=== PATIENT | female | born 1950 | race Caucasian/White ===

== ENCOUNTER → 2016-10-06 | Outpatient (CLI) | payer OTHER ==
[~2016-10-06] MED LIST: ALPR2TAB2 PO; ATEN-60 PO; ATOR10TA52 PO; CLOP75TA41 PO; DIPH2.5T73 PO; ESCI20TA51 PO; ETAN25IN3 SC; METH25IN14 SUBCUT; PANT40TA2 PO; TRAM50TA2 PO
[2016-10-06 13:01] LABS: Urine RBC None Seen /hpf (0 - 4)
[2016-10-06 13:43] LABS: Basophils # (auto) 0.1 uL; Basophils % (auto) 0.7 % (0.0-2.0); Eosinophils # (auto) 0.6 uL; Eosinophils % (auto) 7.2 % (0.0-7.0); Hematocrit 39.1 % (36.0-46.0); Hemoglobin 12.4 g/dL (12.2-16.2); Lymphocytes # (auto) 2.1 uL; Lymphocytes % (auto) 27.4 % (10.0-50.0); Mean Corpuscular Hemoglobin 28.4 pg (28.0-32.0); Mean Corpuscular Hgb Conc. 31.8 g/dL (32.0-36.0); Mean Corpuscular Volume 89.5 fL (80.0-100.0); Mean Platelet Volume 8.6 fL (7.4-10.4); Monocytes # (auto) 0.5 uL; Monocytes % (auto) 6.3 % (0.0-12.0); Neutrophils # (auto) 4.6 uL; Neutrophils % (auto) 58.4 % (37.0-80.0); Platelet Count (auto) 320 10^3/uL (140-450); White Blood Cell 7.8 10^3/uL (4.4-10.8)
[2016-10-06 13:45] LABS: Urine Bilirubin Negative (Negative); Urine Blood Negative /uL (Negative); Urine Color Yellow (Yellow); Urine Glucose Normal (Normal); Urine Ketone Negative (Negative); Urine Nitrite Negative (Negative); Urine Squamous Epithelial Cell FEW /hpf (<5); Urine Urobilinogen Normal (Negative)
[2016-10-06 13:57] LABS: Albumin 3.9 g/dL (3.4-5.0); BUN/Creatinine Ratio 16.3; Bilirubin, Total 0.7 mg/dL (0.2-1.0); Calcium 9.2 mg/dL (8.5-10.1); Total Protein 7.8 g/dL (6.4-8.2)
== END | disposition home or self-care (01) ==
LOC: LAB 11:50
DX: M06.9 Rheumatoid arthritis, unspecified (principal); M25.50 Pain in unspecified joint; D64.9 Anemia, unspecified; I10 Essential (primary) hypertension; M33.20 Polymyositis, organ involvement unspecified; N18.3 Chronic kidney disease, stage 3 (moderate); Z00.00 Encounter for general adult medical examination without abnormal findings
CPT/HCPCS: 36415; 80053; 80061; 81001; 82550; 83615; 84443; 85025; 85652; 86141

== ENCOUNTER → 2017-01-13 | Outpatient (CLI) | payer OTHER ==
[2017-01-13 15:40] LABS: Albumin 3.7 g/dL (3.4-5.0); BUN/Creatinine Ratio 17.4; Basophils # (auto) 0 uL; Basophils % (auto) 0.6 % (0.0-2.0); Eosinophils # (auto) 0.5 uL; Eosinophils % (auto) 7.4 % (0.0-7.0); Hematocrit 37.7 % (36.0-46.0); Hemoglobin 12.9 g/dL (12.2-16.2); Lymphocytes # (auto) 2.1 uL; Lymphocytes % (auto) 28.5 % (10.0-50.0); Mean Corpuscular Hemoglobin 29.8 pg (28.0-32.0); Mean Corpuscular Hgb Conc. 34.3 g/dL (32.0-36.0); Mean Corpuscular Volume 87.1 fL (80.0-100.0); Mean Platelet Volume 8.6 fL (7.4-10.4); Monocytes # (auto) 0.4 uL; Monocytes % (auto) 5.4 % (0.0-12.0); Neutrophils # (auto) 4.2 uL; Neutrophils % (auto) 58.1 % (37.0-80.0); Platelet Count (auto) 261 10^3/uL (140-450); Potassium 3.9 mmol/L (3.5-5.1); Red Cell Distribution Width 15.3 % (11.6-16.0); White Blood Cell 7.3 10^3/uL (4.4-10.8)
[2017-01-13 15:48] LABS: Bilirubin, Total 0.9 mg/dL (0.2-1.0); Total Protein 7.8 g/dL (6.4-8.2)
== END | disposition home or self-care (01) ==
LOC: LAB 14:40
PROVIDERS: ATTEND Family Medicine
DX: J44.9 Chronic obstructive pulmonary disease, unspecified (principal); E78.5 Hyperlipidemia, unspecified; M06.9 Rheumatoid arthritis, unspecified; N18.3 Chronic kidney disease, stage 3 (moderate); I10 Essential (primary) hypertension
CPT/HCPCS: 36415; 80053; 80061; 82306; 82607; 83036; 84443; 85025; 85652; 86141

== ENCOUNTER → 2017-05-24 | Outpatient (CLI) | payer OTHER ==
[2017-05-24 10:52] LABS: Basophils # (auto) 0.1 uL; Basophils % (auto) 0.9 % (0.0-2.0); Eosinophils # (auto) 0.4 uL; Eosinophils % (auto) 5.4 % (0.0-7.0); Hematocrit 36.9 % (36.0-46.0); Hemoglobin 12.5 g/dL (12.2-16.2); Lymphocytes # (auto) 2.5 uL; Lymphocytes % (auto) 31.7 % (10.0-50.0); Mean Corpuscular Hemoglobin 29.5 pg (28.0-32.0); Mean Corpuscular Hgb Conc. 33.8 g/dL (32.0-36.0); Mean Corpuscular Volume 87.4 fL (80.0-100.0); Mean Platelet Volume 8.4 fL (6.9-10.8); Monocytes # (auto) 0.5 uL; Monocytes % (auto) 7.1 % (0.0-12.0); Neutrophils # (auto) 4.3 uL; Neutrophils % (auto) 54.9 % (37.0-80.0); Nucleated Red Blood Cells % 0.1 %; Platelet Count (auto) 273 10^3/uL (140-450); Red Cell Distribution Width 15.2 % (11.8-14.3); White Blood Cell 7.8 10^3/uL (4.4-10.8)
[2017-05-24 11:43] LABS: Albumin 3.5 g/dL (3.4-5.0); BUN/Creatinine Ratio 23.6; Bilirubin, Total 0.6 mg/dL (0.2-1.0); Calcium 9.3 mg/dL (8.5-10.1); Potassium 4.1 mmol/L (3.5-5.1); Total Protein 7.9 g/dL (6.4-8.2)
== END | disposition home or self-care (01) ==
LOC: LAB 09:51
DX: I10 Essential (primary) hypertension (principal); M25.50 Pain in unspecified joint; M06.9 Rheumatoid arthritis, unspecified; D64.9 Anemia, unspecified; Z79.899 Other long term (current) drug therapy
CPT/HCPCS: 36415; 80053; 85025; 85652; 86141

== ENCOUNTER → 2018-01-05 | Outpatient (CLI) | payer OTHER ==
[2018-01-05 15:34] LABS: Albumin 3.8 g/dL (3.4-5.0); BUN/Creatinine Ratio 17.1; Bilirubin, Total 0.6 mg/dL (0.2-1.0); Potassium 4.2 mmol/L (3.5-5.1); Total Protein 7.8 g/dL (6.4-8.2)
[2018-01-05 17:12] LABS: Basophils # (auto) 0.1 uL; Basophils % (auto) 0.9 % (0.0-2.0); Eosinophils # (auto) 0.4 uL; Eosinophils % (auto) 5.7 % (0.0-7.0); Hemoglobin 13.1 g/dL (12.2-16.2); Lymphocytes # (auto) 1.7 uL; Lymphocytes % (auto) 22.9 % (10.0-50.0); Mean Corpuscular Hemoglobin 30.6 pg (28.0-32.0); Mean Corpuscular Hgb Conc. 35.4 g/dL (32.0-36.0); Mean Corpuscular Volume 86.4 fL (80.0-100.0); Monocytes # (auto) 0.5 uL; Monocytes % (auto) 6.2 % (0.0-12.0); Neutrophils # (auto) 4.7 uL; Neutrophils % (auto) 64.3 % (37.0-80.0); Nucleated Red Blood Cells % 0.1 %; Platelet Count (auto) 245 10^3/uL (140-450); Red Blood Cells 4.28 10^6/uL (4.0-5.20); Red Cell Distribution Width 14.4 % (11.8-14.3); White Blood Cell 7.4 10^3/uL (4.4-10.8)
== END | disposition home or self-care (01) ==
LOC: LAB 14:19
PROVIDERS: ATTEND Family Medicine
DX: M06.9 Rheumatoid arthritis, unspecified (principal); K21.9 Gastro-esophageal reflux disease without esophagitis; F33.9 Major depressive disorder, recurrent, unspecified; E78.5 Hyperlipidemia, unspecified; I12.9 Hypertensive chronic kidney disease with stage 1 through stage 4 chronic kidney disease, or unspecified chronic kidney disease; N18.3 Chronic kidney disease, stage 3 (moderate); E03.9 Hypothyroidism, unspecified; J44.9 Chronic obstructive pulmonary disease, unspecified; Z79.899 Other long term (current) drug therapy
CPT/HCPCS: 36415; 80053; 80061; 82306; 82607; 84443; 85025; 85652

== ENCOUNTER → 2018-04-27 | Outpatient (CLI) | payer MEDICARE, OTHER | END | disposition home or self-care (01) | LOC: XYW 11:10 | PROVIDERS: ATTEND Family Medicine | DX: I51.7 Cardiomegaly (principal); I10 Essential (primary) hypertension; E78.5 Hyperlipidemia, unspecified; K21.9 Gastro-esophageal reflux disease without esophagitis | CPT/HCPCS: 93306 ==

== ENCOUNTER → 2018-06-16 | Outpatient (CLI) | payer OTHER ==
[~2018-06-16] VITALS: Ht 162.6 cm; Wt 64.9 kg
[~2018-06-16] MED LIST changes: +ADENOSINE 54 MG in GIVE UN-DILUTED 0 ML IV STA; +ALBUTEROL SULF 2.5 MG/0.5ML(0.5%) NEB SOLN NEB ONE; +ALBUTEROL SULF 2.5 MG/0.5ML(0.5%) NEB SOLN ONE; +IPRATROPIUM BROM 0.5 MG/2.5ML INH SOL NEB ONE; +IPRATROPIUM BROM 0.5 MG/2.5ML INH SOL ONE
[2018-06-16 11:44] VITALS: BP 141/85
== END | disposition home or self-care (01) ==
LOC: XY 06-15 10:48
PROVIDERS: ATTEND Internal Medicine Cardiovascular Disease
DX: R07.89 Other chest pain (principal)
CPT/HCPCS: 78452; 93017; A9500; J0153; J7611; J7644

== ENCOUNTER → 2018-06-23 | Outpatient (CLI) | payer OTHER ==
[~2018-06-23] MED LIST changes: -ADENOSINE 54 MG in GIVE UN-DILUTED 0 ML IV STA; -ALBUTEROL SULF 2.5 MG/0.5ML(0.5%) NEB SOLN NEB ONE; -ALBUTEROL SULF 2.5 MG/0.5ML(0.5%) NEB SOLN ONE; -IPRATROPIUM BROM 0.5 MG/2.5ML INH SOL NEB ONE; -IPRATROPIUM BROM 0.5 MG/2.5ML INH SOL ONE
== END | disposition home or self-care (01) ==
LOC: XYW 10:52
PROVIDERS: ATTEND Internal Medicine Cardiovascular Disease
DX: R07.89 Other chest pain (principal)
CPT/HCPCS: 93306

== ENCOUNTER → 2018-07-19 | Outpatient (CLI) | payer OTHER ==
[2018-07-19 16:16] LABS: Albumin 3.9 g/dL (3.4-5.0); BUN/Creatinine Ratio 20.5; CRP High Sensitivity 0.48 mg/dL (< 0.3); Calcium 8.9 mg/dL (8.5-10.1); Potassium 4.1 mmol/L (3.5-5.1)
[2018-07-19 16:19] LABS: Bilirubin, Total 0.6 mg/dL (0.2-1.0); Total Protein 7.7 g/dL (6.4-8.2)
[2018-07-19 16:28] LABS: Basophils # (auto) 0.1 uL; Basophils % (auto) 1.2 % (0.0-2.0); Eosinophils # (auto) 0.4 uL; Eosinophils % (auto) 6.8 % (0.0-7.0); Hematocrit 36.1 % (36.0-46.0); Hemoglobin 12.8 g/dL (12.2-16.2); Lymphocytes # (auto) 2.1 uL; Lymphocytes % (auto) 33.4 % (10.0-50.0); Mean Corpuscular Hemoglobin 30.8 pg (28.0-32.0); Mean Corpuscular Hgb Conc. 35.4 g/dL (32.0-36.0); Monocytes # (auto) 0.5 uL; Monocytes % (auto) 7.5 % (0.0-12.0); Neutrophils # (auto) 3.2 uL; Neutrophils % (auto) 51.1 % (37.0-80.0); Nucleated Red Blood Cells % 0.1 %; Platelet Count (auto) 249 10^3/uL (140-450); Red Blood Cells 4.15 10^6/uL (4.0-5.20); Red Cell Distribution Width 15.2 % (11.8-14.3); White Blood Cell 6.3 10^3/uL (4.4-10.8)
== END | disposition home or self-care (01) ==
LOC: LAB 14:43
PROVIDERS: ATTEND Internal Medicine
DX: Z11.59 Encounter for screening for other viral diseases (principal); D64.9 Anemia, unspecified; M06.9 Rheumatoid arthritis, unspecified; I10 Essential (primary) hypertension; A15.0 Tuberculosis of lung; Z79.899 Other long term (current) drug therapy; Z72.89 Other problems related to lifestyle
CPT/HCPCS: 36415; 80053; 82306; 85025; 85652; 86141; 86200; 86431; 86704; 86706; 86708; 86803; 87340

== ENCOUNTER → 2018-10-18 | Outpatient (CLI) | payer OTHER, MEDICARE ==
[2018-10-18 16:47] LABS: Basophils # (auto) 0.1 uL; Basophils % (auto) 1.1 % (0.0-2.0); Eosinophils # (auto) 0.3 uL; Eosinophils % (auto) 4.9 % (0.0-7.0); Hematocrit 39.4 % (36.0-46.0); Hemoglobin 13.5 g/dL (12.2-16.2); Lymphocytes # (auto) 1.9 uL; Lymphocytes % (auto) 26.9 % (10.0-50.0); Mean Corpuscular Hemoglobin 29.9 pg (28.0-32.0); Mean Corpuscular Hgb Conc. 34.4 g/dL (32.0-36.0); Mean Corpuscular Volume 86.9 fL (80.0-100.0); Monocytes # (auto) 0.5 uL; Monocytes % (auto) 6.7 % (0.0-12.0); Neutrophils # (auto) 4.2 uL; Neutrophils % (auto) 60.4 % (37.0-80.0); Nucleated Red Blood Cells % 0.2 %; Platelet Count (auto) 243 10^3/uL (140-450); Red Blood Cells 4.53 10^6/uL (4.0-5.20); Red Cell Distribution Width 14.4 % (11.8-14.3); White Blood Cell 6.9 10^3/uL (4.4-10.8)
[2018-10-18 17:36] LABS: Albumin 3.8 g/dL (3.4-5.0); BUN/Creatinine Ratio 14.6; Calcium 8.6 mg/dL (8.5-10.1); Potassium 3.8 mmol/L (3.5-5.1)
[2018-10-18 17:42] LABS: Bilirubin, Total 0.9 mg/dL (0.2-1.0); Total Protein 7.4 g/dL (6.4-8.2)
[2018-10-18 17:46] LABS: Folate (Folic Acid) > 24.00 ng/mL (5.38-24)
== END | disposition home or self-care (01) ==
LOC: LAB 16:06
PROVIDERS: ATTEND Student in an Organized Health Care Education/Training Program
DX: M32.9 Systemic lupus erythematosus, unspecified (principal); M32.10 Systemic lupus erythematosus, organ or system involvement unspecified; M35.00 Sjogren syndrome, unspecified; E53.8 Deficiency of other specified B group vitamins; E03.9 Hypothyroidism, unspecified; I10 Essential (primary) hypertension; D64.9 Anemia, unspecified; M06.9 Rheumatoid arthritis, unspecified; R76.8 Other specified abnormal immunological findings in serum; E78.5 Hyperlipidemia, unspecified
CPT/HCPCS: 36415; 80053; 80061; 82607; 82746; 84443; 85025; 86160; 86376; 86800

== ENCOUNTER → 2019-03-15 | Outpatient (CLI) | payer OTHER, MEDICARE ==
[2019-03-15 14:38] LABS: Basophils # (auto) 0.1 uL; Basophils % (auto) 1.1 % (0.0-2.0); Eosinophils # (auto) 0.4 uL; Eosinophils % (auto) 4.9 % (0.0-7.0); Hematocrit 36.8 % (36.0-46.0); Hemoglobin 12.6 g/dL (12.2-16.2); Lymphocytes # (auto) 1.9 uL; Lymphocytes % (auto) 23.8 % (10.0-50.0); Mean Corpuscular Hemoglobin 30.1 pg (28.0-32.0); Mean Corpuscular Hgb Conc. 34.2 g/dL (32.0-36.0); Mean Corpuscular Volume 87.9 fL (80.0-100.0); Monocytes # (auto) 0.6 uL; Monocytes % (auto) 7.4 % (0.0-12.0); Neutrophils # (auto) 5.1 uL; Neutrophils % (auto) 62.8 % (37.0-80.0); Platelet Count (auto) 216 10^3/uL (140-450); Red Blood Cells 4.18 10^6/uL (4.0-5.20); Red Cell Distribution Width 14.9 % (11.8-14.3); White Blood Cell 8.1 10^3/uL (4.4-10.8)
[2019-03-15 15:51] LABS: Albumin 3.5 g/dL (3.4-5.0); CRP High Sensitivity 0.4 mg/dL (< 0.3); Calcium 8.4 mg/dL (8.5-10.1); Potassium 4.3 mmol/L (3.5-5.1)
[2019-03-15 15:54] LABS: Bilirubin, Total 0.4 mg/dL (0.2-1.0); Total Protein 7.4 g/dL (6.4-8.2)
[2019-03-15 15:58] LABS: BUN/Creatinine Ratio 15.9
== END | disposition home or self-care (01) ==
LOC: LAB 14:20
PROVIDERS: ATTEND Internal Medicine Rheumatology
DX: M06.9 Rheumatoid arthritis, unspecified (principal)
CPT/HCPCS: 36415; 80053; 85025; 85652; 86141

== ENCOUNTER → 2019-06-30 | Outpatient (CLI) | payer OTHER, MEDICARE ==
[2019-06-30 15:53] LABS: Basophils # (auto) 0.1 uL; Eosinophils # (auto) 0.4 uL; Eosinophils % (auto) 4.3 % (0.0-7.0); Hematocrit 40.9 % (36.0-46.0); Hemoglobin 13.9 g/dL (12.2-16.2); Lymphocytes # (auto) 2.5 uL; Lymphocytes % (auto) 29.2 % (10.0-50.0); Mean Corpuscular Hemoglobin 29.3 pg (28.0-32.0); Mean Corpuscular Hgb Conc. 34.1 g/dL (32.0-36.0); Mean Corpuscular Volume 85.9 fL (80.0-100.0); Monocytes # (auto) 0.6 uL; Monocytes % (auto) 6.7 % (0.0-12.0); Neutrophils % (auto) 58.8 % (37.0-80.0); Platelet Count (auto) 289 10^3/uL (140-450); Red Blood Cells 4.76 10^6/uL (4.0-5.20); Red Cell Distribution Width 14.2 % (11.8-14.3); White Blood Cell 8.5 10^3/uL (4.4-10.8)
[2019-06-30 16:16] LABS: % Iron Saturation 21.5 % (15-50)
[2019-06-30 16:24] LABS: Folate (Folic Acid) 20.23 ng/mL (5.38-24)
== END | disposition home or self-care (01) ==
LOC: LAB 15:24
PROVIDERS: ATTEND Internal Medicine
DX: E11.9 Type 2 diabetes mellitus without complications (principal); Z88.1 Allergy status to other antibiotic agents
CPT/HCPCS: 36415; 82746; 83036; 83540; 83550; 85025

== ENCOUNTER 2019-09-23 07:20 | Inpatient (IN) | payer MEDICARE, OTHER ==
[~2019-09-23] VITALS: Ht 165.1 cm; Wt 69.0 kg
[2019-09-23] MEDS ORDERED: HYDROmorphone HCL 2 MG/ML VL IV ONE (08:00)
[2019-09-23] MEDS ORDERED: ONDANSETRON HCL 4 MG/2 ML VIAL IV ONE (08:00)
[2019-09-23 08:10] LABS: Basophils # (auto) 0.1 uL; Basophils % (auto) 1.1 % (0.0-2.0); Eosinophils # (auto) 0.6 uL; Eosinophils % (auto) 7.3 % (0.0-7.0); Hematocrit 36.3 % (36.0-46.0); Hemoglobin 12.4 g/dL (12.2-16.2); Lymphocytes % (auto) 24.4 % (10.0-50.0); Mean Corpuscular Hemoglobin 29.3 pg (28.0-32.0); Mean Corpuscular Hgb Conc. 34.3 g/dL (32.0-36.0); Mean Corpuscular Volume 85.6 fL (80.0-100.0); Monocytes # (auto) 0.6 uL; Monocytes % (auto) 7.2 % (0.0-12.0); Neutrophils # (auto) 4.8 uL; Platelet Count (auto) 362 10^3/uL (140-450); Red Blood Cells 4.24 10^6/uL (4.0-5.20); Red Cell Distribution Width 14.2 % (11.8-14.3)
[2019-09-23 08:27] LABS: INR 1.14 (0.9-1.15); Partial Thromboplastin Time 29.9 sec (23.64-32.05)
[2019-09-23 08:29] LABS: Alanine Aminotransferase 14 U/L (13-56); Anion Gap 10 (5-15); Aspartate Aminotransferase 13 U/L (15-37); BUN/Creatinine Ratio 18.8; Blood Urea Nitrogen 15 mg/dL (7-18); Calcium 7.8 mg/dL (8.5-10.1); Carbon Dioxide 21 mmol/L (21-32); Chloride 108 mmol/L (98-107); GFR African American 91 mL/min; GFR Non-African American 76 mL/min; Glucose 145 mg/dL (74-106); Potassium 3.7 mmol/L (3.5-5.1); Sodium 139 mmol/L (136-145)
[2019-09-23 08:32] LABS: Alkaline Phosphatase 81 U/L (45-117); Bilirubin, Total 0.5 mg/dL (0.2-1.0); Total Protein 6.7 g/dL (6.4-8.2)
[2019-09-23] MEDS ORDERED: MORPHINE SULF INJ 2 MG/ML SYRINGE 1ML IV PRN ×2 (12:30)
[2019-09-23] MEDS ORDERED: NITROGLYCERIN 0.4 MG SL TAB SL PRN (12:30)
[2019-09-23] MEDS ORDERED: HYDROcodone-ACET 5/325MG TAB PO PRN (12:30)
[2019-09-23] MEDS ORDERED: ACETAMINOPHEN 500 MG TAB PO PRN (12:30)
[2019-09-23 13:10] LABS: CRP High Sensitivity 0.7 mg/dL (< 0.3)
[2019-09-23] MEDS: SODIUM CHLORIDE 0.9% 1,000 ML IV ONE ×2 (13:12→17:10)
[2019-09-23] MEDS ORDERED: FAMOTIDINE 20 MG TAB PO SCH (13:15)
[2019-09-23] MEDS: ONDANSETRON HCL 4 MG/2 ML VIAL IV PRN ×2 (14:26→21:06)
[2019-09-23] MEDS ORDERED: ATENOLOL 25 MG TAB PO ONE (14:45)
[2019-09-23 15:41] VITALS: BP 150/94
--- NOTE | 2019-09-23 19:45 | NUR ---
Opening Shift Note Assumed care of patient, AOX4. No S/S of distress/SOB. Fall and safety precautions in place. Call light within reach and able to use. Instructed on POC and to call for assist PRN, will continue to monitor for changes Q1hr and PRN.
[2019-09-23] MEDS: PANTOPRAZOLE 40 MG TAB PO SCH (21:05)
[2019-09-23] MEDS: ATORVASTATIN 20 MG TAB PO SCH (21:05)
[2019-09-23] MEDS: ATENOLOL 25 MG TAB PO SCH (21:05)
[2019-09-23 21:48] VITALS: BP 160/86
[2019-09-23] MEDS ORDERED: ATENOLOL 25 MG TAB PO SCH (22:00)
[2019-09-23] MEDS: hydrALAZINE HCL 20 MG/ML VL IV PRN (22:51)
[2019-09-24] VITALS (7 sets, daily range): BP systolic 105–162; BP diastolic 68–90
[2019-09-24] MEDS: ONDANSETRON HCL 4 MG/2 ML VIAL IV PRN (02:49)
--- NOTE | 2019-09-24 05:05 | NUR ---
HIGH BP SEE EMAR
[2019-09-24] MEDS: hydrALAZINE HCL 20 MG/ML VL IV PRN ×2 (05:06→23:55)
[2019-09-24 05:27] LABS: Basophils # (auto) 0 uL; Basophils % (auto) 0.2 % (0.0-2.0); Eosinophils # (auto) 0 uL; Eosinophils % (auto) 0.2 % (0.0-7.0); Hematocrit 27.6 % (36.0-46.0); Hemoglobin 9.3 g/dL (12.2-16.2); Lymphocytes # (auto) 0.9 uL; Lymphocytes % (auto) 7.9 % (10.0-50.0); Mean Corpuscular Hemoglobin 28.8 pg (28.0-32.0); Mean Corpuscular Hgb Conc. 33.9 g/dL (32.0-36.0); Monocytes # (auto) 0.6 uL; Monocytes % (auto) 4.9 % (0.0-12.0); Neutrophils # (auto) 10.2 uL; Neutrophils % (auto) 86.8 % (37.0-80.0); Platelet Count (auto) 269 10^3/uL (140-450); Red Blood Cells 3.24 10^6/uL (4.0-5.20); Red Cell Distribution Width 14.2 % (11.8-14.3); White Blood Cell 11.8 10^3/uL (4.4-10.8)
--- NOTE | 2019-09-24 06:05 | NUR ---
BP RECHECK BP 138/68 RIGHT ARM SEMI-FOWLERS.
--- NOTE | 2019-09-24 07:15 | NUR ---
Opening Shift Note: Assumed care of patient, awake and alert. No S/S of distress/SOB or pain. Rhino Rocket in place in right nare. Bed in lowest locked position, side rails up x 2, call light within reach. Patient instructed on POC and to call for assist PRN, will continue to monitor for changes Q1hr and PRN.
[2019-09-24] MEDS: PANTOPRAZOLE 40 MG TAB PO SCH ×2 (09:32→20:03)
[2019-09-24] MEDS: ATENOLOL 25 MG TAB PO SCH ×3 (09:33→21:05)
--- NOTE | 2019-09-24 09:45 | NUR ---
Received report, assumed care of patient. Patient is alert and oriented. Nasal plug to right nare. Call light in reach. Will continue to monitor.
--- NOTE | 2019-09-24 10:15 | NUR ---
CT head completed. Patient placed on tele 37. Sinus rhythm 78. Call light in reach. Will continue to monitor.
[2019-09-24] MEDS ORDERED: AMOXICILLIN/CLAVUL 875 MG TAB PO ONE (10:30)
[2019-09-24] MEDS ORDERED: traMADol HCL 50 MG TAB PO ONE (10:30)
[2019-09-24] MEDS ORDERED: traMADol HCL 50 MG TAB PO PRN (10:30)
[2019-09-24] MEDS: ONDANSETRON ODT 4 MG TAB PO PRN (11:19)
--- NOTE | 2019-09-24 19:30 | NUR ---
Opening Shift Note Assumed care of patient, AOX4. Rhinorocket to right nare. No S/S of distress/SOB or pain. Fall and safety precautions in place. Call light within reach. Instructed on POC and to call for assist PRN, will continue to monitor for changes Q1hr and PRN.
[2019-09-24] MEDS: ATORVASTATIN 20 MG TAB PO SCH ×2 (20:03→21:04)
[2019-09-24] MEDS: AMOXICILLIN/CLAVUL 875 MG TAB PO SCH (21:04)
--- NOTE | 2019-09-24 22:00 | NUR ---
TEMP ORAL TEMP 99.2 F. PATIENT EDUCATED ON REASON FOR COOLING INDICATION; MEASURES INITIATED. WILL CONTINUE TO MONITOR.
--- NOTE | 2019-09-24 23:00 | NUR ---
TEMP RECHECK TEMP 99.1 F. WILL NOTIFY STENCIL CUTTER
--- NOTE | 2019-09-24 23:55 | NUR ---
BP CHECK PATIENT STATES SHE FEELS A HEADACHE. BP IS 171/81, MED GIVEN (SEE EMAR). IN NO OTHER S/S OF DISTRESS. WILL CONTINUE TO MONITOR.
[2019-09-25] MEDS ORDERED: ACETAMINOPHEN 500 MG TAB PO ONE (00:15)
--- NOTE | 2019-09-25 00:15 | NUR ---
MD CALL BACK NEW ORDERS RECEIVED, WILL CARRY OUT.
--- NOTE | 2019-09-25 01:23 | NUR ---
TEMP RECHECK ORAL TEMP 97.6 F.
[2019-09-25 01:41] VITALS: BP 146/68
--- NOTE | 2019-09-25 01:41 | NUR ---
BP RECHECK BP 146/68, HEART RATE 80. WILL CONTINUE TO MONITOR.
[2019-09-25] MEDS: ONDANSETRON ODT 4 MG TAB PO PRN (01:49)
[2019-09-25 05:27] VITALS: BP 139/74
[2019-09-25 08:00] VITALS: BP 154/83
--- NOTE | 2019-09-25 08:15 | NUR ---
Opening Shift Note Assumed care of patient, awake, alert, and oriented. Rhinorocket to right nare. No S/S of distress/SOB or pain. Bed in lowest/locked position, bed rails upx2, call light within reach. Instructed on POC and to call for assist PRN, will continue to monitor for changes Q1hr and PRN.
[2019-09-25] MEDS: PANTOPRAZOLE 40 MG TAB PO SCH (09:06)
[2019-09-25] MEDS: AMOXICILLIN/CLAVUL 875 MG TAB PO SCH ×2 (09:06→21:10)
[2019-09-25] MEDS: ATENOLOL 25 MG TAB PO SCH ×2 (09:07→21:12)
--- NOTE | 2019-09-25 10:50 | NUR ---
OFF UNIT PATIENT TAKEN TO ER FOR DR CANCHOLA TO REMOVE RHINO ROCKET. PATIENT TOLERATED WELL. NO BLEEDING, NO S/S OF DISTRESS OR PAIN. NEW ORDERS RECEIVED/ CARRIED OUT. PATIENT RETURNED TO ROOM. WILL CONTINUE TO MONITOR
[2019-09-25 12:00] VITALS: BP 121/68
[2019-09-25 17:00] VITALS: BP 117/85
[2019-09-25] MEDS: ATORVASTATIN 20 MG TAB PO SCH (21:10)
[2019-09-25 21:41] VITALS: BP 138/70
--- NOTE | 2019-09-26 04:10 | NUR ---
LABS DRAWN. ASSIST WITH VOID TO BEDPAN. CHAP STICK PROVIDED. REVIEWED POC. PLANS FOR DISCHARGE TODAY. EXPRESSES CONCERNS FOR HAVING BLOODY NOSE AGAIN. EXPLAINED IMPORTANCE OF MONITORING B/P AT HOME.
[2019-09-26 04:39] VITALS: BP 122/70
[2019-09-26 05:26] LABS: Basophils # (auto) 0 uL; Basophils % (auto) 0.6 % (0.0-2.0); Eosinophils # (auto) 0.4 uL; Eosinophils % (auto) 4.3 % (0.0-7.0); Hematocrit 24.2 % (36.0-46.0); Hemoglobin 8.5 g/dL (12.2-16.2); Lymphocytes # (auto) 1.8 uL; Lymphocytes % (auto) 21.8 % (10.0-50.0); Mean Corpuscular Hemoglobin 29.5 pg (28.0-32.0); Mean Corpuscular Hgb Conc. 35.1 g/dL (32.0-36.0); Mean Corpuscular Volume 83.9 fL (80.0-100.0); Monocytes # (auto) 0.6 uL; Neutrophils # (auto) 5.3 uL; Neutrophils % (auto) 65.3 % (37.0-80.0); Nucleated Red Blood Cells % 0.2 %; Platelet Count (auto) 229 10^3/uL (140-450); Red Blood Cells 2.89 10^6/uL (4.0-5.20); White Blood Cell 8.1 10^3/uL (4.4-10.8)
[2019-09-26 09:00] VITALS: BP 132/68
[2019-09-26] MEDS ORDERED: PANTOPRAZOLE 40 MG TAB PO SCH (10:00)
[2019-09-26] MEDS: AMOXICILLIN/CLAVUL 875 MG TAB PO SCH (10:06)
[2019-09-26] MEDS: ATENOLOL 25 MG TAB PO SCH (10:09)
--- NOTE | 2019-09-26 12:16 | NUR ---
FAXED PRESCRIPTIONS TO [facility].
[2019-09-26 13:00] VITALS: BP 123/60
--- NOTE | 2019-09-26 15:02 | NUR ---
PRESCRIPTIONS FILLED PICKED UP BY BEFORE DC HOME. REINFORCED TO STOP TAKING PLAVIX AND F/U WITH PRIMARY DIRECTED ALSO HAS SCRIPT FOR BLOOD DRAW CBC ON 10/12/19. DC HOME VIA WC TO PRIVATE VEHICLE.
--- NOTE | 2019-09-26 16:24 | NUR ---
assessment Patient is a 69 year old female who has been admitted for nose bleed. Patient lives with her Kristopher and was independent. Patient has a rollator for home use. Patients PCP is Dr Serjio Mcelroy. Patient has no safety issues regarding returning home on discharge. Patient has no post discharge needs identified. Addendum: 09/26/19 at 1625 by Christal ZAMORA Amended: Links added.
== END 2019-09-26 15:00 | disposition home or self-care (01) | DRG 151 ==
LOC: EDBD 07:20 → ER 07:20 → OVERFLOW 07:21 → CENTRAL 13:47
PROVIDERS: ADMIT Nurse Practitioner Acute Care; ATTEND Internal Medicine
PROC: 2Y41X5Z Packing of Nasal Region using Packing Material (ICD-10-PCS; principal; 2019-09-23)
DX: R04.0 Epistaxis (principal); E44.0 Moderate protein-calorie malnutrition; M06.9 Rheumatoid arthritis, unspecified; K52.9 Noninfective gastroenteritis and colitis, unspecified; I34.1 Nonrheumatic mitral (valve) prolapse; R00.2 Palpitations; I10 Essential (primary) hypertension; F41.9 Anxiety disorder, unspecified; D64.9 Anemia, unspecified; T45.525A Adverse effect of antithrombotic drugs, initial encounter; F32.9 Major depressive disorder, single episode, unspecified; K21.9 Gastro-esophageal reflux disease without esophagitis; Z79.02 Long term (current) use of antithrombotics/antiplatelets; Z86.73 Personal history of transient ischemic attack (TIA), and cerebral infarction without residual deficits; Z68.25 Body mass index [BMI] 25.0-25.9, adult; Y92.89 Other specified places as the place of occurrence of the external cause; Z88.2 Allergy status to sulfonamides
CPT/HCPCS: 36415; 70450; 80053; 83615; 84443; 85025; 85610; 85652; 85730; 86141; 86431; 86850; 86900; 86901; 97110; 97116; 97163; 97530; G0378; J2405; Q0162

== ENCOUNTER → 2019-10-12 | Outpatient (CLI) | payer OTHER ==
[2019-10-12 13:25] LABS: Basophils # (auto) 0.1 uL; Basophils % (auto) 1.3 % (0.0-2.0); Eosinophils # (auto) 0.3 uL; Eosinophils % (auto) 4.6 % (0.0-7.0); Hematocrit 34.3 % (36.0-46.0); Hemoglobin 11.5 g/dL (12.2-16.2); Lymphocytes # (auto) 1.3 uL; Mean Corpuscular Hgb Conc. 33.4 g/dL (32.0-36.0); Mean Corpuscular Volume 86.6 fL (80.0-100.0); Monocytes # (auto) 0.4 uL; Neutrophils # (auto) 3.9 uL; Neutrophils % (auto) 65.1 % (37.0-80.0); Nucleated Red Blood Cells % 0.1 %; Platelet Count (auto) 364 10^3/uL (140-450); Red Blood Cells 3.95 10^6/uL (4.0-5.20)
[2019-10-12 14:17] LABS: Potassium 3.9 mmol/L (3.5-5.1)
[2019-10-12 14:29] LABS: Albumin 3.7 g/dL (3.4-5.0); BUN/Creatinine Ratio 14.1; Bilirubin, Total 0.6 mg/dL (0.2-1.0); Calcium 9.5 mg/dL (8.5-10.1); Total Protein 7.5 g/dL (6.4-8.2)
== END | disposition home or self-care (01) ==
LOC: LAB 12:32
PROVIDERS: ATTEND Internal Medicine
DX: E78.5 Hyperlipidemia, unspecified (principal); E03.9 Hypothyroidism, unspecified; I10 Essential (primary) hypertension; E11.9 Type 2 diabetes mellitus without complications
CPT/HCPCS: 36415; 80053; 80061; 82728; 83036; 83540; 84443; 85025

== ENCOUNTER → 2020-05-24 | Outpatient (CLI) | payer OTHER | END | disposition home or self-care (01) | LOC: LAB 16:41 | PROVIDERS: ATTEND Internal Medicine | DX: I10 Essential (primary) hypertension (principal); M06.9 Rheumatoid arthritis, unspecified | CPT/HCPCS: 87070 ==

== ENCOUNTER → 2020-05-31 | Outpatient (CLI) | payer OTHER ==
[2020-05-31 13:46] LABS: Basophils # (auto) 0.1 10 ^3/uL (0-0.2); Basophils % (auto) 1.3 % (0.0-2.0); Eosinophils # (auto) 0.4 10 ^3/uL (0-0.8); Eosinophils % (auto) 5.4 % (0.0-7.0); Hematocrit 38.5 % (36.0-46.0); Hemoglobin 13.2 g/dL (12.2-16.2); Lymphocytes # (auto) 1.4 10 ^3/uL (0.4-5.4); Lymphocytes % (auto) 17.1 % (10.0-50.0); Mean Corpuscular Hemoglobin 30.4 pg (28.0-32.0); Mean Corpuscular Hgb Conc. 34.3 g/dL (32.0-36.0); Mean Corpuscular Volume 88.8 fL (80.0-100.0); Monocytes # (auto) 0.4 10 ^3/uL (0-1.3); Monocytes % (auto) 5.3 % (0.0-12.0); Neutrophils # (auto) 5.7 10 ^3/uL (1.6-8.6); Neutrophils % (auto) 70.9 % (37.0-80.0); Nucleated Red Blood Cells % 0.2 %; Platelet Count (auto) 293 10^3/uL (140-450); Red Blood Cells 4.33 10^6/uL (4.0-5.20); Red Cell Distribution Width 15.2 % (11.8-14.3); White Blood Cell 8.1 10^3/uL (4.4-10.8)
[2020-05-31 14:12] LABS: Urine Bacteria NONE SEEN /hpf (None Seen); Urine Blood Negative /uL (Negative); Urine Specific Gravity 1.027 (1.001-1.035); Urine WBC 1 /hpf (0 - 5)
[2020-05-31 14:15] LABS: Free T4 (Free Thyroxine) 0.99 ng/dL (0.89-1.76)
[2020-05-31 14:55] LABS: Albumin 4.1 g/dL (3.4-5.0); BUN/Creatinine Ratio 23.2; Bilirubin, Total 0.6 mg/dL (0.2-1.0); Calcium 9.2 mg/dL (8.5-10.1); Total Protein 7.9 g/dL (6.4-8.2)
== END | disposition home or self-care (01) ==
LOC: LAB 13:14
PROVIDERS: ATTEND Internal Medicine
DX: I10 Essential (primary) hypertension (principal); M06.9 Rheumatoid arthritis, unspecified; J32.9 Chronic sinusitis, unspecified
CPT/HCPCS: 36415; 80053; 81001; 82607; 84439; 84443; 85025; 85652

== ENCOUNTER → 2021-03-11 | Outpatient (CLI) | payer OTHER ==
[~2021-03-11] MED LIST changes: -CLOP75TA41 PO; +CLOP75TA70 PO; +ESCI-34 PO; -ESCI20TA51 PO
[2021-03-11 16:37] LABS: Basophils # (auto) 0.1 10 ^3/uL (0-0.2); Basophils % (auto) 0.8 % (0.0-2.0); Eosinophils # (auto) 0.4 10 ^3/uL (0-0.8); Eosinophils % (auto) 4.8 % (0.0-7.0); Hematocrit 38.8 % (36.0-46.0); Hemoglobin 13.4 g/dL (12.2-16.2); Lymphocytes # (auto) 1.9 10 ^3/uL (0.4-5.4); Lymphocytes % (auto) 20.7 % (10.0-50.0); Mean Corpuscular Hgb Conc. 34.4 g/dL (32.0-36.0); Mean Corpuscular Volume 84.3 fL (80.0-100.0); Monocytes # (auto) 0.7 10 ^3/uL (0-1.3); Monocytes % (auto) 7.3 % (0.0-12.0); Neutrophils # (auto) 6.1 10 ^3/uL (1.6-8.6); Neutrophils % (auto) 66.4 % (37.0-80.0); Nucleated Red Blood Cells % 0.1 %; Red Blood Cells 4.61 10^6/uL (4.0-5.20); Red Cell Distribution Width 15.2 % (11.8-14.3); White Blood Cell 9.1 10^3/uL (4.4-10.8)
[2021-03-11 16:57] LABS: BUN/Creatinine Ratio 19.8; Calcium 9.1 mg/dL (8.5-10.1); Potassium 4.4 mmol/L (3.5-5.1)
[2021-03-11 17:00] LABS: Bilirubin, Total 0.7 mg/dL (0.2-1.0); Total Protein 7.9 g/dL (6.4-8.2)
[2021-03-11 17:05] LABS: Free T4 (Free Thyroxine) 1.09 ng/dL (0.89-1.76)
[2021-03-11 17:06] LABS: Urine Bacteria NONE SEEN /hpf (None Seen); Urine Blood Negative /uL (Negative); Urine Specific Gravity 1.026 (1.001-1.035); Urine WBC 5 /hpf (0 - 5)
== END | disposition home or self-care (01) ==
LOC: LAB 15:57
PROVIDERS: ATTEND Internal Medicine
DX: I10 Essential (primary) hypertension (principal); E55.9 Vitamin D deficiency, unspecified; M06.9 Rheumatoid arthritis, unspecified
CPT/HCPCS: 36415; 80053; 80061; 81001; 82306; 82607; 84439; 84443; 85025; 85652

== ENCOUNTER → 2022-01-20 | Outpatient (CLI) | payer OTHER ==
[2022-01-20 13:43] LABS: Basophils # (auto) 0.1 10 ^3/uL (0-0.2); Basophils % (auto) 0.6 % (0.0-2.0); Eosinophils # (auto) 0.1 10 ^3/uL (0-0.8); Eosinophils % (auto) 0.8 % (0.0-7.0); Hematocrit 36.6 % (36.0-46.0); Lymphocytes # (auto) 1.6 10 ^3/uL (0.4-5.4); Lymphocytes % (auto) 18.9 % (10.0-50.0); Mean Corpuscular Hemoglobin 30.4 pg (28.0-32.0); Mean Corpuscular Hgb Conc. 35.4 g/dL (32.0-36.0); Mean Corpuscular Volume 85.9 fL (80.0-100.0); Monocytes # (auto) 0.4 10 ^3/uL (0-1.3); Monocytes % (auto) 4.9 % (0.0-12.0); Neutrophils # (auto) 6.4 10 ^3/uL (1.6-8.6); Neutrophils % (auto) 74.8 % (37.0-80.0); Red Blood Cells 4.27 10^6/uL (4.0-5.20); Red Cell Distribution Width 14.3 % (11.8-14.3); White Blood Cell 8.6 10^3/uL (4.4-10.8)
[2022-01-20 14:25] LABS: Albumin 3.8 g/dL (3.4-5.0); Calcium 9.2 mg/dL (8.5-10.1); Potassium 3.8 mmol/L (3.5-5.1)
[2022-01-20 14:28] LABS: Bilirubin, Total 0.6 mg/dL (0.2-1.0); Total Protein 7.8 g/dL (6.4-8.2)
== END | disposition home or self-care (01) ==
LOC: LAB 13:25
PROVIDERS: ATTEND Internal Medicine
DX: M06.9 Rheumatoid arthritis, unspecified (principal); I10 Essential (primary) hypertension
CPT/HCPCS: 36415; 80053; 84439; 84443; 85025

== ENCOUNTER → 2022-04-29 | Outpatient (CLI) | payer OTHER | END | disposition home or self-care (01) | LOC: LAB 09:23 | PROVIDERS: ATTEND Internal Medicine | DX: R94.4 Abnormal results of kidney function studies (principal) | CPT/HCPCS: 36415; 82565; 84520 ==

== ENCOUNTER → 2022-05-20 | Outpatient (CLI) | payer OTHER ==
[~2022-05-20] MED LIST changes: +IOHEXOL 350 MG/ML 100ML IJ ONE; +METOPROLOL TARTRATE 1MG/1ML-5ML VIAL IV ONE; +NITROGLYCERIN 0.4 MG SL TAB SL ONE
[2022-05-20 09:26] VITALS: BP_SYST 146; BP_SYST 155; BP_DIAS 72; BP_DIAS 81
== END | disposition home or self-care (01) ==
LOC: Rad HDHVI 09:13
PROVIDERS: ATTEND Internal Medicine
DX: I25.10 Atherosclerotic heart disease of native coronary artery without angina pectoris (principal); R94.4 Abnormal results of kidney function studies; R93.1 Abnormal findings on diagnostic imaging of heart and coronary circulation
CPT/HCPCS: 36415; 75574; 82565; 84520; G0463; Q9967

== ENCOUNTER → 2022-05-21 | Outpatient (CLI) | payer OTHER ==
[~2022-05-21] MED LIST changes: -IOHEXOL 350 MG/ML 100ML IJ ONE; -METOPROLOL TARTRATE 1MG/1ML-5ML VIAL IV ONE; -NITROGLYCERIN 0.4 MG SL TAB SL ONE
== END | disposition home or self-care (01) ==
LOC: XYW 09:02
PROVIDERS: ATTEND Internal Medicine
DX: I35.8 Other nonrheumatic aortic valve disorders (principal); I11.9 Hypertensive heart disease without heart failure
CPT/HCPCS: 93306

== ENCOUNTER → 2022-10-16 | Outpatient (CLI) | payer OTHER ==
[2022-10-16 10:25] LABS: Basophils # (auto) 0 10 ^3/uL (0-0.2); Basophils % (auto) 0.5 % (0.0-2.0); Eosinophils # (auto) 0.2 10 ^3/uL (0-0.8); Eosinophils % (auto) 3.3 % (0.0-7.0); Hematocrit 38.2 % (36.0-46.0); Hemoglobin 13.6 g/dL (12.2-16.2); Lymphocytes # (auto) 1.7 10 ^3/uL (0.4-5.4); Lymphocytes % (auto) 27.9 % (10.0-50.0); Mean Corpuscular Hgb Conc. 35.5 g/dL (32.0-36.0); Mean Corpuscular Volume 84.4 fL (80.0-100.0); Monocytes # (auto) 0.4 10 ^3/uL (0-1.3); Monocytes % (auto) 6.5 % (0.0-12.0); Neutrophils # (auto) 3.8 10 ^3/uL (1.6-8.6); Neutrophils % (auto) 61.8 % (37.0-80.0); Nucleated Red Blood Cells % 0.2 %; Red Blood Cells 4.53 10^6/uL (4.0-5.20); Red Cell Distribution Width 15.9 % (11.8-14.3); White Blood Cell 6.2 10^3/uL (4.4-10.8)
[2022-10-16 11:13] LABS: Thyroid Stimulating Hormone 0.47 uIU/mL (0.358-3.74)
[2022-10-16 11:19] LABS: Albumin 4.3 g/dL (3.4-5.0); BUN/Creatinine Ratio 28.2; Bilirubin, Total 0.8 mg/dL (0.2-1.0); Calcium 9.4 mg/dL (8.5-10.1); Potassium 3.9 mmol/L (3.5-5.1)
[2022-10-16 11:20] LABS: Free T4 (Free Thyroxine) 1.28 ng/dL (0.89-1.76)
== END | disposition home or self-care (01) ==
LOC: LAB 09:29
PROVIDERS: ATTEND Internal Medicine
DX: I10 Essential (primary) hypertension (principal); M06.9 Rheumatoid arthritis, unspecified; G62.9 Polyneuropathy, unspecified
CPT/HCPCS: 36415; 80053; 80061; 82607; 83615; 84439; 84443; 85025; 85652; 86200

== ENCOUNTER → 2023-08-25 | Outpatient (CLI) | payer OTHER ==
[~2023-08-25] MED LIST changes: -ESCI-34 PO; +ESCI1TAB37 PO
[2023-08-25 12:30] LABS: Basophils # (auto) 0.1 10 ^3/uL (0-0.2); Basophils % (auto) 0.6 % (0.0-2.0); Eosinophils # (auto) 0.1 10 ^3/uL (0-0.8); Eosinophils % (auto) 1.6 % (0.0-7.0); Hematocrit 37.1 % (36.0-46.0); Hemoglobin 12.7 g/dL (12.2-16.2); Lymphocytes # (auto) 1.3 10 ^3/uL (0.4-5.4); Lymphocytes % (auto) 16.1 % (10.0-50.0); Mean Corpuscular Hemoglobin 29.7 pg (28.0-32.0); Mean Corpuscular Hgb Conc. 34.2 g/dL (32.0-36.0); Mean Corpuscular Volume 86.8 fL (80.0-100.0); Monocytes # (auto) 0.5 10 ^3/uL (0-1.3); Monocytes % (auto) 5.8 % (0.0-12.0); Neutrophils # (auto) 6.1 10 ^3/uL (1.6-8.6); Neutrophils % (auto) 75.9 % (37.0-80.0); Red Blood Cells 4.27 10^6/uL (4.0-5.20); Red Cell Distribution Width 14.2 % (11.8-14.3)
[2023-08-25 13:11] LABS: Alanine Aminotransferase 12 U/L (7-40); Albumin 4.4 g/dL (3.2-4.8); Alkaline Phosphatase 83 U/L (46-116); Anion Gap 6 (5-15); Aspartate Aminotransferase 17 U/L (13-40); BUN/Creatinine Ratio 17.8 (10.0-20.0); Blood Urea Nitrogen 13 mg/dL (9-23); Calcium 9.6 mg/dL (8.5-10.1); Carbon Dioxide 27 mmol/L (20-30); Chloride 108 mmol/L (98-107); Cholesterol 144 mg/dL (< 200); Glucose 100 mg/dL (74-106); HDL Cholesterol 64 mg/dL (40-59); LDL Cholesterol 65 mg/dL (< 100); Potassium 4.1 mmol/L (3.5-5.1); Sodium 141 mmol/L (136-145); Triglycerides 72 mg/dL (< 150)
[2023-08-25 13:12] LABS: Total Protein 7.1 g/dL (5.7-8.2)
== END | disposition home or self-care (01) ==
LOC: LAB 12:11
PROVIDERS: ATTEND Internal Medicine
DX: J44.9 Chronic obstructive pulmonary disease, unspecified (principal); E04.1 Nontoxic single thyroid nodule
CPT/HCPCS: 36415; 80053; 80061; 83036; 84443; 85025

== ENCOUNTER → 2023-09-09 | Outpatient (CLI) | payer MEDICARE, OTHER | END | disposition home or self-care (01) | LOC: XYW 08:52 | PROVIDERS: ATTEND Internal Medicine | DX: I51.7 Cardiomegaly (principal); R00.2 Palpitations; I70.0 Atherosclerosis of aorta | CPT/HCPCS: 93306 ==

== ENCOUNTER → 2023-09-14 | Outpatient (CLI) | payer OTHER ==
[2023-09-14 10:48] LABS: Albumin 4.7 g/dL (3.2-4.8); Alkaline Phosphatase 86 U/L (46-116); Anion Gap 7 (5-15); Aspartate Aminotransferase 18 U/L (13-40); BUN/Creatinine Ratio 23.3 (10.0-20.0); Blood Urea Nitrogen 20 mg/dL (9-23); Calcium 10.2 mg/dL (8.5-10.1); Carbon Dioxide 26 mmol/L (20-30); Chloride 105 mmol/L (98-107); Glucose 109 mg/dL (74-106); Potassium 4.1 mmol/L (3.5-5.1); Sodium 138 mmol/L (136-145)
[2023-09-14 10:49] LABS: Bilirubin, Total 1.1 mg/dL (0.2-1.0); Total Protein 7.6 g/dL (5.7-8.2)
[2023-09-14 11:14] LABS: Alanine Aminotransferase < 9 U/L (7-40)
== END | disposition home or self-care (01) ==
LOC: LAB 09:24
PROVIDERS: ATTEND Internal Medicine
DX: E11.9 Type 2 diabetes mellitus without complications (principal); E03.9 Hypothyroidism, unspecified; E78.5 Hyperlipidemia, unspecified
CPT/HCPCS: 36415; 80053; 82306; 82607; 83880; 84443

== ENCOUNTER → 2023-10-08 | Outpatient (CLI) | payer OTHER | END | disposition home or self-care (01) | LOC: LAB 10:37 | PROVIDERS: ATTEND Internal Medicine | DX: Z00.00 Encounter for general adult medical examination without abnormal findings (principal); E04.1 Nontoxic single thyroid nodule; M06.9 Rheumatoid arthritis, unspecified | CPT/HCPCS: 36415; 82306; 82672; 84144; 84403; 84443 ==

== ENCOUNTER → 2023-12-10 | Outpatient (CLI) | payer OTHER ==
[2023-12-10 12:34] LABS: T3 Total 1.08 ng/mL (0.60-1.81)
[2023-12-10 12:35] LABS: Free T4 (Free Thyroxine) 1.07 ng/dL (0.89-1.76)
== END | disposition home or self-care (01) ==
LOC: LAB 11:10
PROVIDERS: ATTEND Internal Medicine
DX: I50.32 Chronic diastolic (congestive) heart failure (principal); M06.9 Rheumatoid arthritis, unspecified; E04.1 Nontoxic single thyroid nodule; E78.5 Hyperlipidemia, unspecified
CPT/HCPCS: 36415; 84439; 84443; 84480

== ENCOUNTER → 2023-12-24 | Outpatient (CLI) | payer OTHER | END | disposition home or self-care (01) | LOC: LAB 08:55 | PROVIDERS: ATTEND Internal Medicine | DX: I50.32 Chronic diastolic (congestive) heart failure (principal); E04.1 Nontoxic single thyroid nodule; E78.5 Hyperlipidemia, unspecified; M06.9 Rheumatoid arthritis, unspecified | CPT/HCPCS: 82533 ==

== ENCOUNTER → 2024-06-07 | Outpatient (CLI) | payer OTHER ==
[2024-06-07 12:29] LABS: Basophils # (auto) 0 10 ^3/uL (0-0.2); Basophils % (auto) 0.5 % (0.0-2.0); Eosinophils # (auto) 0.1 10 ^3/uL (0-0.8); Eosinophils % (auto) 1.3 % (0.0-7.0); Hematocrit 35.4 % (36.0-46.0); Hemoglobin 12.5 g/dL (12.2-16.2); Lymphocytes # (auto) 1.4 10 ^3/uL (0.4-5.4); Lymphocytes % (auto) 15.3 % (10.0-50.0); Mean Corpuscular Hemoglobin 30.5 pg (28.0-32.0); Mean Corpuscular Hgb Conc. 35.4 g/dL (32.0-36.0); Mean Corpuscular Volume 86.2 fL (80.0-100.0); Monocytes # (auto) 0.6 10 ^3/uL (0-1.3); Monocytes % (auto) 6.8 % (0.0-12.0); Neutrophils # (auto) 6.8 10 ^3/uL (1.6-8.6); Neutrophils % (auto) 76.1 % (37.0-80.0); Platelet Count (auto) 383 10^3/uL (140-450); Red Blood Cells 4.11 10^6/uL (4.0-5.20); Red Cell Distribution Width 14.1 % (11.8-14.3)
[2024-06-07 13:03] LABS: Free T4 (Free Thyroxine) 1.19 ng/dL (0.89-1.76); T3 Total 1.34 ng/mL (0.60-1.81)
== END | disposition home or self-care (01) ==
LOC: LAB 11:58
PROVIDERS: ATTEND Internal Medicine
DX: Z00.00 Encounter for general adult medical examination without abnormal findings (principal)
CPT/HCPCS: 36415; 82565; 84439; 84443; 84450; 84460; 84480; 85025

== ENCOUNTER → 2024-07-12 | Outpatient (CLI) | payer OTHER ==
[2024-07-12 09:47] LABS: Anion Gap 8 (5-15); Carbon Dioxide 27 mmol/L (20-31); Chloride 106 mmol/L (98-107); Potassium 3.9 mmol/L (3.5-5.1); Sodium 141 mmol/L (136-145)
[2024-07-12 09:48] LABS: Calcium 10.5 mg/dL (8.7-10.4)
[2024-07-12 09:53] LABS: BUN/Creatinine Ratio 22.9 (10.0-20.0); Blood Urea Nitrogen 16 mg/dL (9-23); Glucose 107 mg/dL (74-106)
== END | disposition home or self-care (01) ==
LOC: LAB 09:21
PROVIDERS: ATTEND Internal Medicine
DX: K76.0 Fatty (change of) liver, not elsewhere classified (principal); R59.1 Generalized enlarged lymph nodes
CPT/HCPCS: 36415; 80048

== ENCOUNTER 2025-03-05 12:46 | Outpatient (CLI) | payer OTHER ==
[2025-03-05 13:05] LABS: Hematocrit 39.1 % (36.0-46.0); Hemoglobin 14.0 g/dL (12.2-16.2); Mean Corpuscular Hemoglobin 31.3 pg (28.0-32.0); Mean Corpuscular Volume 87.5 fL (80.0-100.0); Nucleated Red Blood Cells % 0.0 %
[2025-03-05 13:29] LABS: Urine Protein, UAD Negative (Negative)
[2025-03-05 13:37] LABS: Alanine Aminotransferase 18 U/L (7-40); Alkaline Phosphatase 100 U/L (46-116); Anion Gap 9 (5-15); BUN/Creatinine Ratio 19.5 (10.0-20.0); Blood Urea Nitrogen 16 mg/dL (9-23); Carbon Dioxide 25 mmol/L (20-31); Chloride 106 mmol/L (98-107); Glucose 96 mg/dL (74-106); Potassium 4.1 mmol/L (3.5-5.1); Sodium 140 mmol/L (136-145); Total Protein 7.3 g/dL (5.7-8.2)
[2025-03-05 13:38] LABS: Cholesterol 193 mg/dL (< 200)
[2025-03-05 13:45] LABS: Albumin 4.8 g/dL (3.2-4.8); Bilirubin, Total 1.3 mg/dL (0.2-1.0); Calcium 10.8 mg/dL (8.7-10.4); HDL Cholesterol 71 mg/dL (40-59); Triglycerides 183 mg/dL (< 150)
== END 2025-03-05 17:00 | disposition home or self-care (01) ==
LOC: LAB 12:46
PROVIDERS: ATTEND Internal Medicine
DX: I13.0 Hypertensive heart and chronic kidney disease with heart failure and stage 1 through stage 4 chronic kidney disease, or unspecified chronic kidney disease (principal); N18.2 Chronic kidney disease, stage 2 (mild); E55.9 Vitamin D deficiency, unspecified; E04.2 Nontoxic multinodular goiter; Z00.01 Encounter for general adult medical examination with abnormal findings
CPT/HCPCS: 36415; 80053; 80061; 81001; 82306; 83036; 84439; 84443; 85025

== ENCOUNTER 2025-05-21 13:30 | Outpatient (CLI) | payer OTHER ==
[2025-05-21 14:58] LABS: Alanine Aminotransferase 15 U/L (7-40); Albumin 4.5 g/dL (3.2-4.8); Alkaline Phosphatase 80 U/L (46-116); BUN/Creatinine Ratio 24.6 (10.0-20.0); Blood Urea Nitrogen 16 mg/dL (9-23); Calcium 9.9 mg/dL (8.7-10.4); Carbon Dioxide 27 mmol/L (20-31); Glucose 93 mg/dL (74-106); Total Protein 7.0 g/dL (5.7-8.2)
[2025-05-21 14:59] LABS: Creatine Kinase IFCC 45 U/L (34-145)
[2025-05-21 15:02] LABS: Free T4 (Free Thyroxine) 1.24 ng/dL (0.89-1.76)
[2025-05-21 15:03] LABS: Bilirubin, Total 1.5 mg/dL (0.2-1.0); Free T3 3.54 pg/mL (2.3-4.2)
[2025-05-21 15:08] LABS: Anion Gap 10 (5-15); Chloride 104 mmol/L (98-107); Potassium 4.2 mmol/L (3.5-5.1); Sodium 141 mmol/L (136-145)
[2025-05-22 12:00] LABS: Urine Protein, UAD Negative (Negative)
== END 2025-05-21 17:00 | disposition home or self-care (01) ==
LOC: LAB 13:30
PROVIDERS: ATTEND Internal Medicine
DX: I13.0 Hypertensive heart and chronic kidney disease with heart failure and stage 1 through stage 4 chronic kidney disease, or unspecified chronic kidney disease (principal); N18.2 Chronic kidney disease, stage 2 (mild); I50.9 Heart failure, unspecified; E78.2 Mixed hyperlipidemia; R79.89 Other specified abnormal findings of blood chemistry; R82.90 Unspecified abnormal findings in urine; R17 Unspecified jaundice
CPT/HCPCS: 36415; 80053; 81001; 82550; 84439; 84443; 84481